=== PATIENT | male | born 1965 | race Hispanic/Latino ===

== ENCOUNTER 2021-05-22 14:54 | Emergency (ER) | payer SELFPAY ==
--- NOTE | 2021-05-22 15:36 | EDPHYS ---
Physician Documentation [facility] Name: Alberto Rothman Age: 55 yrs Sex: Male : 1965 Arrival Date: 05/22/2021 Time: 14:55 Bed 12 Private MD: ED Physician Sal Espinosa HPI: 05/22 15:55 This 55 yrs old Male presents to ER via Ambulatory with complaints of kb Toothache. 15:55 The patient presents with pain, swelling. The problem is located in the upper left kb first molar (#14). Onset: The symptoms/episode began/occurred yesterday. Duration: The symptoms are continuous. Modifying factors: The symptoms are alleviated by nothing, the symptoms are aggravated by nothing. Associated signs and symptoms: Pertinent positives: pain, swelling. Severity of symptoms: At their worst the symptoms were moderate, in the emergency department the symptoms are unchanged. The patient has not experienced similar symptoms in the past. The patient has not recently seen a physician. Historical: - Allergies: 15:33 PENICILLINS; aa5 15:33 NSAIDS; aa5 15:33 Ultram; aa5 - PMHx: 15:33 None; aa5 - Immunization history:: Adult Immunizations unknown. - Social history:: Smoking status: Patient denies any tobacco usage or history of. ROS: 15:54 Constitutional: Negative for fever, chills, and weight loss. kb 15:54 ENT: Positive for Teeth pain 15:54 All other systems are negative. Exam: 15:54 Constitutional: This is a well developed, well nourished patient who is awake, alert, kb and in no acute distress. Head/Face: Normocephalic, atraumatic. Respiratory: Respirations even and unlabored. No increased work of breathing, no retractions or nasal flaring. Skin: Warm, dry with normal turgor. Normal color. MS/ Extremity: Pulses equal, no cyanosis. Neurovascular intact. Full, normal range of motion. Neuro: Awake and alert, GCS 15, oriented to person, place, time, and situation. Moves all extremities. Normal gait. Psych: Awake, alert, with orientation to person, place and time. Behavior, mood, and affect are within normal limits. 15:54 ENT: Dental exam: gum swelling, that is moderate, specifically in the upper left first molar (#14), pain, that is moderate, that is severe, specifically in the upper left first molar (#14). Vital Signs: 15:31 BP 118 / 86; Pulse 99; Resp 18 S; Temp 98.6(TE); Pulse Ox 99% on R/A; Weight 95.25 kg aa5 (R); Height 5 ft. 7 in. (170.18 cm) (R); 15:31 Body Mass Index 32.89 (95.25 kg, 170.18 cm) aa5 MDM: 15:34 Patient medically screened. kb 15:36 ED course: INSURANCE INSTRUCTOR aware reviewed. No prescriptions found. kb 15:54 Data reviewed: vital signs, nurses notes. Data interpreted: Pulse oximetry: on room air kb is 99 %. Interpretation: normal. Counseling: I had a detailed discussion with the patient and/or guardian regarding: the historical points, exam findings, and any diagnostic results supporting the discharge/admit diagnosis, the need for outpatient follow up, a dentist, to return to the emergency department if symptoms worsen or persist or if there are any questions or concerns that arise at home. Administered Medications: 15:55 Drug: Clindamycin 300 mg Route: PO; aa5 16:15 Follow up: Response: No adverse reaction aa5 16:15 Follow up: Response: No adverse reaction aa5 15:55 Drug: [place] (HYDROcodone-acetaminophen) 10 mg-325 mg 1 tabs Route: PO; aa5 16:15 Follow up: Response: No adverse reaction aa5 Disposition Summary: 05/22/21 15:35 Discharge Ordered Location: Home kb Condition: Stable kb Diagnosis - Periapical abscess without sinus kb Followup: kb - With: Emergency Department - When: As needed - Reason: Worsening of condition Followup: kb - With: Private Physician - When: 2 - 3 days - Reason: Recheck today's complaints, Continuance of care, Re-evaluation by your physician Discharge Instructions: - Discharge Summary Sheet kb - Dental Pain, [id number] kb - Dental Abscess, [id number] kb Forms: - Medication Reconciliation Form kb - Thank You Letter kb - Antibiotic Education kb - Prescription Opioid Use kb Prescriptions: - Clindamycin HCl 300 mg Oral Capsule - take 1 capsule by ORAL route every 6 hours for 10 days; 40 capsule; Refills: 0, kb Product Selection Permitted - Tylenol-Codeine #3 300 mg-30 mg Oral - take 1 tablet by ORAL route every 4 hours As needed; 15 tablet; Refills: 0, kb Product Selection Permitted Addendum: 05/25/2021 10:24 Co-signature as Attending Physician, Sal Espinosa MD I agree with the assessment and c aguilar plan of care. Signatures: Ashlee Estrella, FEATHER MIXER-C FEATHER MIXER-Ckb Sal Espinosa MD MD cha Calderon, Audri, RN RN aa5
--- NOTE | 2021-05-22 15:36 | ER ---
Nurse's Notes [facility] Name: Alberto Rothman Age: 55 yrs Sex: Male : 1965 Arrival Date: 05/22/2021 Time: 14:55 Bed 12 Private MD: Diagnosis: Periapical abscess without sinus Presentation: 05/22 15:31 Chief complaint: Patient states: "I have dental pain started about a day ago and I aa5 can't get into a dentist". Coronavirus screen: At this time, the client does not indicate any symptoms associated with coronavirus-19. Ebola Screen: No symptoms or risks identified at this time. Initial Sepsis Screen: Does the patient meet any 2 criteria? No. Patient's initial sepsis screen is negative. Does the patient have a suspected source of infection? No. Patient's initial sepsis screen is negative. Risk Assessment: Do you want to hurt yourself or someone else? Patient reports no desire to harm self or others. Onset of symptoms was May 2021. 15:31 Method Of Arrival: Ambulatory aa5 15:31 Acuity: LESLIE 4 aa5 Historical: - Allergies: 15:33 PENICILLINS; aa5 15:33 NSAIDS; aa5 15:33 Ultram; aa5 - PMHx: 15:33 None; aa5 - Immunization history:: Adult Immunizations unknown. - Social history:: Smoking status: Patient denies any tobacco usage or history of. Screenin:34 Abuse screen: Denies threats or abuse. Denies injuries from another. Nutritional ss screening: No deficits noted. Tuberculosis screening: Never had TB. Fall Risk None identified. Assessment: 15:34 General: Appears in no apparent distress. comfortable, Behavior is calm, cooperative. ss Neuro: Level of Consciousness is awake, alert, obeys commands, Oriented to person, place, time, situation. Cardiovascular: Capillary refill < 3 seconds is brisk in bilateral fingers Patient's skin is warm and dry. Respiratory: Airway is patent Respiratory effort is even, unlabored, Respiratory pattern is regular, symmetrical. EENT: Nares are clear Oral mucosa is moist. Derm: Skin is intact, is healthy with good turgor, Skin is dry, Skin is pink, warm \\T\\ dry. normal. 16:15 Reassessment: Patient is alert, oriented x 3, equal unlabored respirations, skin aa5 warm/dry/pink. Vital Signs: 15:31 BP 118 / 86; Pulse 99; Resp 18 S; Temp 98.6(TE); Pulse Ox 99% on R/A; Weight 95.25 kg aa5 (R); Height 5 ft. 7 in. (170.18 cm) (R); 15:31 Body Mass Index 32.89 (95.25 kg, 170.18 cm) aa5 ED Course: 14:55 Patient arrived in ED. as 15:18 Ashlee Estrella FNP-C is PHCP. kb 15:18 Sal Espinosa MD is Attending Physician. kb 15:31 Arm band placed on. aa5 15:33 Triage completed. aa5 15:34 Patient has correct armband on for positive identification. Bed in low position. ss 15:55 Stacey Moreno, DMITRY is Primary Nurse. ss 16:16 No provider procedures requiring assistance completed. Patient did not have IV access aa5 during this emergency room visit. Administered Medications: 15:55 Drug: Clindamycin 300 mg Route: PO; aa5 16:15 Follow up: Response: No adverse reaction aa5 16:15 Follow up: Response: No adverse reaction aa5 15:55 Drug: [place] (HYDROcodone-acetaminophen) 10 mg-325 mg 1 tabs Route: PO; aa5 16:15 Follow up: Response: No adverse reaction aa5 Outcome: 15:35 Discharge ordered by MD. kb 16:15 Discharged to home ambulatory. aa5 16:15 Condition: stable 16:15 Discharge instructions given to patient, Instructed on discharge instructions, follow up and referral plans. medication usage, Demonstrated understanding of instructions, follow-up care, medications, Prescriptions given X 2. 16:16 Patient left the ED. aa5 Signatures: Ashlee Estrella FNP-C FNP-Sangeeta Bunch Audri, RN RN aa5 Stacey Moreno, DMITRY RN ss Corrections: (The following items were deleted from the chart) 15:34 15:31 BP 143 / 100; Pulse 99bpm; Resp 18bpm; Spontaneous; Pulse Ox 99% RA; Temp 98.6F aa5 Temporal; aa5 15:34 15:31 BP 143 / 100; Pulse 99bpm; Resp 18bpm; Spontaneous; Pulse Ox 99% RA; Temp 98.6F aa5 Temporal; 95.25 kg Reported; Height 5 ft. 7 in. Reported; BMI: 32.8; aa5
[2021-05-22] MEDS ORDERED: HYDROCODONE/APAP 10/325 TAB ONE (16:19)
[2021-05-22 16:33] VITALS: BP 118/86; TEMP 98.6; O2SAT 99
== END 2021-05-22 16:16 | disposition home or self-care (01) ==
LOC: ER 14:54
DX: K04.7 Periapical abscess without sinus (principal); Z88.0 Allergy status to penicillin
CPT/HCPCS: 99283